=== PATIENT | male | born 1940 | race Hispanic/Latino ===

== ENCOUNTER 2020-07-03 10:21 | Outpatient (CLI) | payer MEDICARE, OTHER ==
--- NOTE | 2020-07-04 10:20 | XRay Report ---
CHEST 2 VIEWS INDICATION / CLINICAL INFORMATION: HYPERTENSION I10/ SHELTER US OF MEDICATIONS Z79.899. COMPARISON: None available. FINDINGS: SUPPORT DEVICES: None. HEART / MEDIASTINUM: No significant abnormality. LUNGS / PLEURA: No significant pulmonary or pleural abnormality. No pneumothorax. ADDITIONAL FINDINGS: Bilateral prominent nipple shadows are noted. Surgical clips are noted of the up per abdomen. IMPRESSION: 1. No acute findings. Signer Name: Ben Samayoa MD Signed: 07/03/2020 11:13 AM Workstation Name: [id number]
== END 2020-07-03 10:22 | disposition home or self-care (01) ==
LOC: SPVIMAG 10:21
PROVIDERS: ATTEND Family Medicine
DX: I10 Essential (primary) hypertension (principal); Z79.899 Other long term (current) drug therapy; Z98.890 Other specified postprocedural states
CPT/HCPCS: 71046

== ENCOUNTER 2020-08-15 13:39 | Outpatient (CLI) | payer MEDICARE, OTHER ==
--- NOTE | 2020-08-15 15:53 | XRay Report ---
CHEST 1 VIEW INDICATION: RIB PAIN LEFT SIDE /SHORTNESS OF BREATH COMPARISON: None FINDINGS: Support devices: None Heart: Normal Lungs/Pleura: Left rib fractures. No appreciable pneumothorax. No significant pleural fluid. No acute pulmonary disease. IMPRESSION: 1. Acute left rib fractures, but no acute disease. LEFT RIBS 5 VIEWS INDICATION / CLINICAL INFORMATION: RIB PAIN LEFT SIDE /SHORTNESS OF BREATH. COMPARISON: None available. FINDINGS: Acute, mildly displaced fractures are demonstrated involving the left fifth, sixth and seventh ribs p osteriorly. No additional fractures. No pneumothorax or other complication. Signer Name: Alex Purdy MD Signed: 08/15/2020 3:49 PM Workstation Name: [id number]
== END 2020-08-15 13:40 | disposition home or self-care (01) ==
LOC: SPVIMAG 13:39
PROVIDERS: ATTEND Nurse Practitioner
DX: S22.32XA Fracture of one rib, left side, initial encounter for closed fracture (principal); R07.81 Pleurodynia; R06.02 Shortness of breath; X58.XXXA Exposure to other specified factors, initial encounter; Y93.89 Activity, other specified; Y92.89 Other specified places as the place of occurrence of the external cause; Y99.8 Other external cause status
CPT/HCPCS: 71046